=== PATIENT | female | born 1975 | race American Indian/Alaskan Native ===

== ENCOUNTER 2021-04-07 08:00 | Outpatient (CLI) | payer OTHER ==
[~2021-04-07 08:00] MED LIST: PHENERGAN25 MG PO; PREVACID15 MG PO
== END 2021-04-07 08:30 | disposition home or self-care (01) ==
LOC: PPH VACUNA 08:00
PROVIDERS: ATTEND Emergency Medicine Pediatric Emergency Medicine
DX: Z23 Encounter for immunization (principal)